=== PATIENT | female | born 1995 | race African-American/Black ===

== ENCOUNTER 2023-11-15 09:48 | Emergency (ER) | payer MEDICAID ==
[~2023-11-15] VITALS: Ht 170.2 cm; Wt 117.0 kg
[2023-11-15 10:09] VITALS: BP 111/72; PULSE 112; RESP 16; TEMP 97.8; O2SAT 100
== END 2023-11-15 10:50 | disposition home or self-care (01) ==
LOC: ER 10:39
DX: H92.03 Otalgia, bilateral (principal); Z53.21 Procedure and treatment not carried out due to patient leaving prior to being seen by health care provider
CPT/HCPCS: 99281